=== PATIENT | male | born 1990 | race Caucasian/White ===

== ENCOUNTER → 2016-08-22 | Outpatient (REF) | payer OTHER | LOC: M SMT 10:56 | PROVIDERS: ATTEND Urology | DX: Z30.2 Encounter for sterilization (principal) ==

== ENCOUNTER → 2016-11-05 | Outpatient (REF) | payer OTHER ==
[2016-11-05 11:12] LABS: IMMMOTILE SPERM CENTRIFUGED PRESENT (ABSENT); IMMOTILE SPERM PRESENT (ABSENT); MOTILE SPERM ABSENT (ABSENT); MOTILE SPERM CENTRIFUGED PRESENT (ABSENT)
== END ==
LOC: M SMT 10:28
PROVIDERS: ATTEND Urology
DX: Z30.2 Encounter for sterilization (principal)

== ENCOUNTER 2018-02-23 09:07 | Emergency (ER) | payer BC, OTHER | END 2018-02-23 10:06 | disposition home or self-care (01) | LOC: M ED 09:07 | DX: S90.31XA Contusion of right foot, initial encounter (principal); W22.8XXA Striking against or struck by other objects, initial encounter; Y92.098 Other place in other non-institutional residence as the place of occurrence of the external cause | CPT/HCPCS: 73630 ==

== ENCOUNTER → 2018-10-06 | Outpatient (REF) | payer OTHER ==
[~2018-10-06] MED LIST: IBUP-1022 PO
[2018-10-06 14:19] LABS: SEMEN APPEARANCE OPAQUE (OPAQUE); SEMEN VISCOSITY LIQUID (LIQUID); WBC CONCENTRATION <=1 M/ml (<=1 M/ml)
== END ==
LOC: M SMT 14:05
PROVIDERS: ATTEND Urology
DX: N46.01 Organic azoospermia (principal)

== ENCOUNTER → 2024-12-21 | Outpatient (CLI) | payer OTHER ==
[2024-12-21 14:41] LABS: C REACTIVE PROTEIN QUANTITATIV < 0.50 MG/DL (<1.0)
[2024-12-21 14:42] LABS: ALT/SGPT 19 U/L (7.0-40); AST/SGOT 22 U/L (<34); BASO # 0.0 10^3/uL (0.0-0.2); BASO % 0.6 % (0.0-1.0); CALCIUM LEVEL 10.0 MG/DL (8.5-10.1); CARBON DIOXIDE LEVEL 32 MMOL/L (20-31); CHLORIDE LEVEL 103 MMOL/L (98-107); CHOLESTEROL LEVEL 163 MG/DL (<200); CHOLESTEROL RISK RATIO 4.38 (<5); CREATININE FOR GFR 0.96 MG/DL (0.70-1.30); EOS # 0.3 10^3/uL (0.0-0.5); EOS % 6.7 % (0.0-3.0); GLOMERULAR FILTRATION RATE > 90.0 (>60); LDL CHOLESTEROL 95.8 MG/DL (<100); LYMPH # 1.6 10^3/uL (1.5-5.0); LYMPH % 32.0 % (24.0-44.0); MONO # 0.3 10^3/uL (0.0-0.8); MONO % 5.5 % (2.0-8.0); NEUTROPHILS # 2.7 10^3/uL (1.5-8.5); NEUTROPHILS % 54.8 % (36.0-66.0); NON-HDL-C 125.8 MG/DL; PLATELET COUNT, AUTOMATED 190 10^3/uL (150-450); POTASSIUM SERUM 4.6 MMOL/L (3.5-5.1); RHEUMATOID FACTOR QUANT < 3.5 IU/ML (<14); SODIUM LEVEL 143 MMOL/L (136-145); TRIGLYCERIDES LEVEL 150 MG/DL (<150)
[2024-12-21 14:43] LABS: FREE T4 1.24 NG/DL (0.89-1.76)
[2024-12-21 14:50] LABS: ERYTHROCYTE SEDIMENTATION RATE 6 mm/hr (0-15)
[2024-12-21 15:18] LABS: ESTIMATED AVERAGE GLUCOSE 100.0 MG/DL (60-110)
[2024-12-25 12:43] LABS: HLA-B27 Positive (Negative)
== END ==
LOC: M PLALAB 08:47
PROVIDERS: ATTEND Nurse Practitioner Family
DX: R21 Rash and other nonspecific skin eruption (principal); Z13.220 Encounter for screening for lipoid disorders; Z13.1 Encounter for screening for diabetes mellitus; Z13.29 Encounter for screening for other suspected endocrine disorder

== ENCOUNTER 2025-03-11 09:09 | Day surgery (SDC) | payer OTHER ==
[~2025-03-11] VITALS: Ht 177.8 cm; Wt 84.2 kg
[~2025-03-11 09:09] MED LIST changes: +FLUTISP; -IBUP-1022 PO; +IBUP600T42 PO
[2025-03-11] MEDS: LR 1,000 ML IV SCH (09:40)
[2025-03-11] MEDS ORDERED: LIDOCAINE 2% 100 MG/5 ML SDV (FOR ANES.) As Ordered ONE (10:40)
[2025-03-11] MEDS ORDERED: ONDANSETRON 4MG 2ML VIAL As Ordered ONE (10:40)
[2025-03-11] MEDS ORDERED: dexAMETHasone 4 MG/ML 1 ML VIAL As Ordered ONE (10:40)
[2025-03-11] MEDS ORDERED: ROCURONIUM BROMIDE 50MG/5ML VIAL As Ordered ONE (10:40)
[2025-03-11] MEDS ORDERED: SUGAMMADEX SODIUM 500 MG/5 ML VIAL As Ordered ONE (10:40)
[2025-03-11] MEDS ORDERED: MIDAZOLAM INJ 2 MG/2 ML VIAL As Ordered ONE (10:44)
[2025-03-11] MEDS ORDERED: ACETAMINOPHEN 1000MG/100ML IV BAG As Ordered ONE (12:26)
[2025-03-11] MEDS: LIDOCAINE W/EPINEPHrine 1% 20 ML VIAL As Ordered ONE (12:30)
[2025-03-11] MEDS: SODIUM CHLORIDE 0.9% NASAL GEL 15GM (AYR) As Ordered ONE (12:33)
[2025-03-11] MEDS: EPINEPHrine 1 MG/ML INJ 30 ML MD-VIAL As Ordered ONE (12:34)
[2025-03-11] MEDS: METHYLENE BLUE 0.5% (5 MG/ML) 10 ML AMP As Ordered ONE (12:35)
[2025-03-11] MEDS ORDERED: MORPHINE 4 MG/ML 1 ML VIAL IV PRN (13:15)
[2025-03-11] MEDS: ONDANSETRON 4MG 2ML VIAL IV PRN (13:40)
[2025-03-11] MEDS: KETOROLAC 30 MG/ML 1 ML VIAL IV ONE (13:55)
[2025-03-11 15:40] VITALS: BP 143/85; TEMP 97.4; O2SAT 97
== END 2025-03-11 15:45 | disposition home or self-care (01) ==
LOC: M SDC 09:09
PROVIDERS: ATTEND Otolaryngology
DX: J34.2 Deviated nasal septum (principal); R09.81 Nasal congestion
CPT/HCPCS: 30520; 88300; J0131; J0169; J1100; J1885; J2250; J2405; J3010; Q9968